=== PATIENT | male | born 1950 | race Caucasian/White ===

== ENCOUNTER 2018-06-27 13:03 | Inpatient (IN) | payer OTHER ==
[~2018-06-27] VITALS: Ht 177.8 cm; Wt 89.9 kg
[~2018-06-27 13:03] MED LIST: APAP/HYDROCODON1 T13 PO; COL100 PO
[2018-06-27 13:19] VITALS: Ht 177.8 cm; Wt 89.9 kg
[2018-06-27 18:51] LABS: BASOPHIL % 0.4 % (0-2); PLATELET COUNT 261 x10^3mcL (130-400)
[2018-06-27 19:00] LABS: CALCIUM 8.5 mg/dL (8.5-10.1); CARBON DIOXIDE 30.5 mmol/L (21-32); CREATININE SERUM 1.3 mg/dL (0.7-1.3); POTASSIUM SERUM 3.8 mmol/L (3.5-5.1)
[2018-06-27 19:04] LABS: ALBUMIN 3.4 g/dL (3.4-5.0); BILIRUBIN TOTAL 0.88 mg/dL (0.20-1.00)
[2018-06-27 19:07] LABS: RED CELL DISTRIBUTION WIDTH 15.9 % (11.5-14.5)
[2018-06-27 19:48] LABS: MAGNESIUM 2.2 mg/dL (1.8-2.4); PHOSPHOROUS 3.8 mg/dL (2.5-4.9)
[2018-06-27 19:50] LABS: CHOLESTEROL/HDL RATIO 2.5
[2018-06-27 19:55] LABS: T3 TOTAL 0.99 ng/mL
[2018-06-27 19:58] LABS: FREE T4 1.29 ng/dL (0.76-1.46); FREE THYROXINE INDEX 2.5 ug/dL (1.4-4.5)
[2018-06-27 20:45] VITALS: BP 176/109
[2018-06-27] MEDS ORDERED: HCTZ/LISINOPRIL1 TA1 PO (21:42)
[2018-06-27] MEDS ORDERED: CIPRO500 MG PO (21:43)
[2018-06-27] MEDS ORDERED: MELOXICAM15 M1 PO (21:43)
[2018-06-28 01:39] LABS: microscopic required? NO
[2018-06-28 01:45] LABS: urine erythrocyte NEGATIVE (NEGATIVE)
[2018-06-28 01:58] LABS: AMPHETAMINE QUAL UR NONE DETECTED (See below)
[2018-06-28 05:47] VITALS: BP 136/97
[2018-06-28 08:30] VITALS: BP 111/79
[2018-06-28 12:38] VITALS: BP 111/62
[2018-06-28 16:37] VITALS: BP 137/78
[2018-06-28 20:39] VITALS: BP 125/68
[2018-06-29 05:25] VITALS: BP 145/77
[2018-06-29 06:24] LABS: PLATELET COUNT 286 x10^3mcL (130-400)
[2018-06-29 06:40] LABS: CALCIUM 8.5 mg/dL (8.5-10.1); CHLORIDE SERUM 103 mmol/L (98-107); CREATININE SERUM 1.2 mg/dL (0.7-1.3); GFR1 > 60 mL/min; GLUCOSE SERUM 157 mg/dL (74-106); MAGNESIUM 2.2 mg/dL (1.8-2.4); PHOSPHOROUS 3.5 mg/dL (2.5-4.9); POTASSIUM SERUM 3.9 mmol/L (3.5-5.1); SODIUM SERUM 139 mmol/L (136-145)
[2018-06-29 07:18] LABS: BASOPHIL % 0 % (0-2); RED CELL DISTRIBUTION WIDTH 15.6 % (11.5-14.5)
[2018-06-29 09:14] VITALS: BP 124/76
[2018-06-29 13:32] VITALS: BP 126/76
[2018-06-29 17:28] VITALS: BP 122/74
[2018-06-29 20:52] VITALS: BP 116/80
[2018-06-30 05:50] VITALS: BP 136/85
[2018-06-30 06:48] LABS: PLATELET COUNT 296 x10^3mcL (130-400)
[2018-06-30 06:55] LABS: BASOPHIL % 0 % (0-2); RED CELL DISTRIBUTION WIDTH 16.5 % (11.5-14.5)
[2018-06-30 07:09] LABS: CALCIUM 8.3 mg/dL (8.5-10.1); CHLORIDE SERUM 103 mmol/L (98-107); CREATININE SERUM 1.1 mg/dL (0.7-1.3); GFR1 > 60 mL/min; GLUCOSE SERUM 134 mg/dL (74-106); MAGNESIUM 2.3 mg/dL (1.8-2.4); PHOSPHOROUS 3.7 mg/dL (2.5-4.9); POTASSIUM SERUM 4.1 mmol/L (3.5-5.1); SODIUM SERUM 138 mmol/L (136-145)
[2018-06-30 08:53] VITALS: BP 134/81
[2018-06-30 10:42] VITALS: BP 134/81
[2018-06-30] MEDS ORDERED: LEVAQUIN750 MG PO (10:47)
[2018-06-30] MEDS ORDERED: MEDROL4 MG PO (10:49)
== END 2018-06-30 13:17 | disposition home or self-care (01) | DRG 193 ==
LOC: ED 13:03 → MU 19:18 → DU 19:18 → MU 20:20 → DU 21:00
PROVIDERS: Emergency Medicine; Internal Medicine
DX: J18.9 Pneumonia, unspecified organism (principal); J96.01 Acute respiratory failure with hypoxia; J44.1 Chronic obstructive pulmonary disease with (acute) exacerbation; I50.42 Chronic combined systolic (congestive) and diastolic (congestive) heart failure; I10 Essential (primary) hypertension; I25.2 Old myocardial infarction; Z68.30 Body mass index [BMI] 30.0-30.9, adult; Z86.73 Personal history of transient ischemic attack (TIA), and cerebral infarction without residual deficits; F17.210 Nicotine dependence, cigarettes, uncomplicated
CPT/HCPCS: 36600; 82962; 83880; 84439; 92610-GN; 94150; 97110-GP; 97530-GP; 99406; J1940; J1956; J2920; J2930; J7030; J7040; J7613; J7620; J7644

== ENCOUNTER 2018-09-22 15:52 | Emergency (ER) | payer OTHER ==
[~2018-09-22] VITALS: Ht 177.8 cm; Wt 113.4 kg
[~2018-09-22 15:52] MED LIST changes: +CIPRO500 MG PO; +HCTZ/LISINOPRIL1 TA1 PO; +LEVAQUIN750 MG PO; +MEDROL4 MG PO; +MELOXICAM15 M1 PO
[2018-09-22 16:17] VITALS: Ht 177.8 cm; Wt 113.4 kg
[2018-09-22 16:51] LABS: CALCIUM 9.1 mg/dL (8.5-10.1); CARBON DIOXIDE 27.9 mmol/L (21-32); CHLORIDE SERUM 106 mmol/L (98-107); CREATININE SERUM 1.2 mg/dL (0.7-1.3); GFR1 > 60 mL/min; GLUCOSE SERUM 122 mg/dL (74-106); POTASSIUM SERUM 3.7 mmol/L (3.5-5.1); SODIUM SERUM 143 mmol/L (136-145)
[2018-09-22 16:56] LABS: ALBUMIN 3.6 g/dL (3.4-5.0); ALKALINE PHOSPHATASE 76 U/L (46-116); ALT/SGPT 27 U/L (16-63); AST/SGOT 14 U/L (15-37); BILIRUBIN TOTAL 0.6 mg/dL (0.20-1.00); TOTAL PROTEIN, SERUM 7.7 g/dL (6.4-8.2)
[2018-09-22 17:08] LABS: BASOPHIL % 0.7 % (0-2); PLATELET COUNT 276 x10^3mcL (130-400)
[2018-09-22 17:19] LABS: RED CELL DISTRIBUTION WIDTH 15.4 % (11.5-14.5)
[2018-09-22 19:40] VITALS: BP 142/99
== END 2018-09-22 20:19 | disposition home or self-care (01) ==
LOC: ED 15:52
PROVIDERS: Emergency Medicine
DX: E86.0 Dehydration (principal); M79.605 Pain in left leg
CPT/HCPCS: 83880; 87804; J1885; J7030; Q0092

== ENCOUNTER 2018-10-03 22:32 | Inpatient (IN) | payer OTHER ==
[~2018-10-03] VITALS: Ht 177.8 cm; Wt 90.0 kg
--- NOTE | 2018-10-03 23:04 | NUR ---
PATIENT WAS MICHAEL IN BY EMS WITH REPORT OF PRODUCTIVE COUGH X 3 DAYS AND SHOTRNESS OF BREATH. EMS REPORTS ROOM AIR SATURATION 90. ATIENT IS OS 2 LITERS OF OXYGEN VIA N/C. COURSE BREATH SOUND OVER LUNG FIELD
[2018-10-03 23:27] LABS: BASOPHIL % 0.6 % (0-2); PLATELET COUNT 306 x10^3mcL (130-400)
[2018-10-03 23:28] LABS: RED CELL DISTRIBUTION WIDTH 15.1 % (11.5-14.5)
[2018-10-03 23:33] LABS: CALCIUM 8.5 mg/dL (8.5-10.1); CARBON DIOXIDE 31.8 mmol/L (21-32); CHLORIDE SERUM 103 mmol/L (98-107); CREATININE SERUM 1.2 mg/dL (0.7-1.3); GFR1 > 60 mL/min; GLUCOSE SERUM 138 mg/dL (74-106); POTASSIUM SERUM 3.3 mmol/L (3.5-5.1); SODIUM SERUM 141 mmol/L (136-145)
[2018-10-03 23:45] LABS: ALKALINE PHOSPHATASE 71 U/L (46-116); ALT/SGPT 24 U/L (16-63); AST/SGOT 11 U/L (15-37); BILIRUBIN TOTAL 0.4 mg/dL (0.20-1.00); TOTAL PROTEIN, SERUM 7.1 g/dL (6.4-8.2)
[2018-10-03 23:59] LABS: CHOLESTEROL 68 mg/dL (<200); HDL CHOLESTEROL 25 mg/dL (40-60)
[2018-10-04 01:48] LABS: MAGNESIUM 2.2 mg/dL (1.8-2.4); PHOSPHOROUS 2.9 mg/dL (2.5-4.9)
--- NOTE | 2018-10-04 01:53 | NUR ---
PT MEDICATED PER MD ORDERS. PT VERBALIZED UNDERSTANDING OF MEDICATION. SEE EMAR
--- NOTE | 2018-10-04 02:30 | NUR ---
RECEIVED PT FROM ED NURSES ON [facility]. TELE #40 SHOWING NSR, DENIES CP. COARSE RHONCHI NOTED BILATERALLY, SOB WITH EXERTION, PRODUCTIVE COUGH WITH MODERATE AMOUNT OF WHITE SPUTUM NOTED. PT PLACED ON 4L OXYGEN VIA NC, HOB ELEVATED. ABD DISTENDED/ROUND, BOWEL SOUNDS ACTIVE X4 QUADS, DENIES N/V. PULSES PALPABLE, NO EDEMA NOTED. PT WHEELCHAIR BOUND. IV SITES NOTED TO L HAND AND RFA, CDI WITH NO S/S REDNESS OR SWELLING. PT SENT UP WITH AZITHROMYCIN. ORIENTED TO SURROUNDINGS. CALL LIGHT WITHIN REACH. WILL CONTINUE TO MONITOR.
--- NOTE | 2018-10-04 02:30 | NUR ---
REPORT WAS GIVEN T MARIA ELENA. PATIENT TRANSPORTED TO ROOM 253B AFTER COMPLETING BREATHING TREATMENT.
[2018-10-04 03:17] VITALS: BP 148/93
--- NOTE | 2018-10-04 03:50 | NUR ---
PAGE-GATED DR. LUNDBERG REGARDING K+ 3.3.
[2018-10-04 05:24] VITALS: BP 146/83
--- NOTE | 2018-10-04 06:17 | NUR ---
RT CALLED PER DR. LUNDBERG REQUEST.
--- NOTE | 2018-10-04 06:19 | NUR ---
PT RESTING IN BED, EASILY AROUSABLE, 4L OXYGEN NC IN PLACE. SOB AND PRODUCTIVE COUGH NOTED. DENIES PAIN. NO CHANGE IN ASSESSMENT. ALL NEEDS MET AND ATTENDED TO. ENCOURAGED PT TO SPIT OUT SPUTUM INSTEAD OF SWALLOWING, PT VERBALIZED UNDERSTANDING. IV SITES REMAIN CDI, NO S/S REDNESS OR SWELLING. CALL LIGHT WITHIN REACH. WILL CONTINUE T OMONITOR.
--- NOTE | 2018-10-04 07:01 | NUR ---
PT REPORTS FEELING NAUSEOUS AND SPITTING UP, MEDICATED PER EMAR WITH ZOFRAN.
--- NOTE | 2018-10-04 08:03 | NUR ---
RECEIVED AWAKE AND ALERT, ON O2 4L N/C SATS 94%. NO ACUTE RESP. DISTRESS NOTED. PT NOTED WITH WET/PRODUCTIVE COUGH. NO SOB NOTED. NO C/O PAIN OR DISCOMFORT AT THIS TIME. FAMILY AT BEDSIDE. CALL LIGHT WITHIN REACH. WILL CONTINUE W/PLAN OF CARE.
[2018-10-04 09:06] LABS: microscopic required? NO
[2018-10-04 09:09] LABS: UA SPECIFIC GRAVITY 1.025 (1.005-1.035); urine erythrocyte NEGATIVE (NEGATIVE)
[2018-10-04 09:38] VITALS: BP 115/78
[2018-10-04 12:27] VITALS: BP 118/77
[2018-10-04 17:28] VITALS: BP 114/63
--- NOTE | 2018-10-04 18:56 | NUR ---
REMAINS IN NO ACUTE DISTRESS, NO C/O PAIN AT THIS TIME. IVF INFUSING WELL AND SITE CLEAR. CALL LIGHT WITHIN REACH. WILL BE ENDODRSED TO INCOMING SHIFT.
--- NOTE | 2018-10-04 19:41 | NUR ---
RECEIVED PT FROM DAY SHIFT RN. RAY. TELE #40 SHOWING NSR, HR 73. DENIES CP. BREATHING E/U, SOB WITH MINIMAL EXERTION, ON 4L OXYGEN WITH HUMIDIFIER. RHONCHI NOTED BILATERALLY. PT OCCASIONALLY HAS EPISODES OF WET PRODUCTIVE COUGHING AND GASPING FOR AIR. ABD FIRM/ROUND, BOWEL SOUNDS ACTIVE X4 QUADS, NO N/V. DENIES PAIN. PULSES PALPABLE. NO EDEMA NOTED. CALL LIGHT WITHIN REACH. IVF INFUSING WELL, IV SITE TO L HAND CDI WITH NO REDNESS OR SWELLING. WILL CONTINUE TO MONITOR.
[2018-10-04 20:33] VITALS: BP 111/70
--- NOTE | 2018-10-05 00:04 | NUR ---
PT RESTING IN BED WITH EYES CLOSED. BREATHING E/U. OCCASIONALLY HAS WET PRODUCTIVE COUGH. NO SIGNS OF PAIN. CALL LIGHT WITHIN REACH. WILL CONTINUE TO MONITOR.
[2018-10-05 05:23] VITALS: BP 120/79
--- NOTE | 2018-10-05 05:50 | NUR ---
PT HAD RESTFUL NIGHT. DENIES PAIN. WAS ABLE TO INDEPENDENTLY SUCTION MOUTH, LITTLE OUTPUT NOTED. BREATHING E/U ON NC WITH HUMIDIFIER. NO CHANGE IN ASSESSMENT. ALL NEEDS MET AND ATTENDED TO. IV REMAINS CDI, IVF INFUSING WELL. CALL LIGHT WITHIN REACH. WILL CONTINUE TO MONITOR.
--- NOTE | 2018-10-05 08:00 | NUR ---
RECEIVED AWAKE AND ALERT. WITH GABBLED SPEECH AND SLOW TO RESPOND BUT ABLE TO MAKE NEEDS KNOWN. ON O2 4L N/V WITH HUMIDIFY SATS 92-93%. NO ACUTE RESP. DISTRESS NOTED. PT WITH WET PRODUCTIVE COUGH. LUNGS SOUND RHONCHI KINGSLEY.NO SOB NOTED. VS WNL. IVF INFUSING WELL AND SITE WITH NO REDNESS OR SWELLING. CALL LIGHT WITHIN REACH.WILL CONTINUE W/PLAN OF CARE.
[2018-10-05 08:26] VITALS: BP 129/79
--- NOTE | 2018-10-05 12:27 | NUR ---
RESTING IN BED. NO ACUTE DISTRESS. DENIES DISCOMFORT.
[2018-10-05 12:52] VITALS: BP 119/73
--- NOTE | 2018-10-05 18:37 | NUR ---
REMAINS IN NO ACUTE DISTRESS. AWAKE AND ALERT. NO C/O PAIN OR DISCOMFORT AT THIS TIME. CALL LIGHT WITHIN REACH. WILL BE ENDORSED TO INCOMING SHIFT.
[2018-10-05 18:41] VITALS: BP 134/71
--- NOTE | 2018-10-05 19:21 | NUR ---
RECEIVED PT FROM DAY SHIFT RN. RAY. TELE #40 SHOWING NSR. DENIES CP. PT REPORTS "BREATHING BETTER" AFTER BREATHING TX AND SUCTIONING. PT REMAINS VERY CONGESTED, 4L OXYGEN WITH HUMIDIFIER IN USE, COARSE CRACKLES AND RHONCHI BILATERALLY. PT COUGH REMAINS UNPRODUCTIVE. PT REPORTS SOME JAWLINE DISCOMFORT. ABD FIRM/ROUND, BOWEL SOUNDS ACTIVE X4 QUADS, NO N/V. DENIES PAIN. PULSES PALPABLE. NO EDEMA NOTED. CALL LIGHT WITHIN REACH. IVF INFUSING WELL, IV SITE TO L HAND CDI WITH NO REDNESS OR SWELLING. WILL CONTINUE TO MONITOR.
--- NOTE | 2018-10-05 21:01 | NUR ---
PATIENT WAS NT SUCTIONED AND ORALLY SUCTIONED WITH MINIMAL IMPROVEMENT. PT HAS COPIOUS AMOUNTS OF SECRETIONS. WITH HIS HISTORY OF CVA AND NON-PRODUCTIVE COUGH, PATIENT HAS A HARD TIME SPEAKING DUE TO THE PHLEGHM. PATIENT WOULD POSS BENEFIT FROM A BRONCH WASH. RN INFORMED.
[2018-10-05 21:05] VITALS: BP 126/83
--- NOTE | 2018-10-05 21:44 | NUR ---
SPOKE TO DR. MENDEZ REGARDING RT RECOMMENDATION FOR BRONCHOSCOPY. NO NEW ORDERS.
--- NOTE | 2018-10-06 01:03 | NUR ---
PT RESTING IN BED. FIXED PT LEADS AND GOWN. EASILY AROUSABLE TO SOUND. VERY WET PRODUCTIVE COUGH NOTED. DENIES PAIN. WILL CONTINUE TO MONITOR.
[2018-10-06 05:13] VITALS: BP 142/85
--- NOTE | 2018-10-06 06:03 | NUR ---
PT HAD RESTFUL NIGHT. DENIES PAIN. NO S/S ACUTE DISTRESS. NO CHANGE IN ASSESSMENT. ALL NEEDS MET AND ATTENDED TO. SAFETY MEASURE IN PLACE. CALL LIGHT WITHIN REACH. WILL CONTINUE TO MONITOR.
--- NOTE | 2018-10-06 07:05 | NUR ---
REPORT RCD FROM SAUL ARREDONDO. PATIENT REPORTS HE IS WET WITH URINE, SHEETS/GOWN WET, WILL BRING DRY LINENS, INFORMED INFRASTRUCTURE ANALYST OF NEED, CONCHA. NS 125 ML/HR TO LEFT HAND WITHOUT COMPLICATIONS. PATIENT ON 4L NC WITH VERY NOISY BREATHING, WET COUGH. ASSISTED PATIENT TO SUCTION SECRETIONS. PATIENT TO USE CALL LIGHT TO COMMUNICATE NEEDS. BED LOW, CALL LIGHT WITHIN REACH. WILL MONITOR.
[2018-10-06 07:34] LABS: CALCIUM 8.2 mg/dL (8.5-10.1); CARBON DIOXIDE 35.2 mmol/L (21-32); CHLORIDE SERUM 102 mmol/L (98-107); GFR1 > 60 mL/min; GLUCOSE SERUM 131 mg/dL (74-106); MAGNESIUM 2.3 mg/dL (1.8-2.4); POTASSIUM SERUM 4.6 mmol/L (3.5-5.1); SODIUM SERUM 139 mmol/L (136-145)
--- NOTE | 2018-10-06 07:40 | NUR ---
WITH ASSISTANCE OF ESTRELLITA NAQVI, CHANGED PATIENT'S LINENS AND GOWN PATIENT WAS SOAKED WITH URINE. PATIENT REPOSITIONED FOR COMFORT. SHIFT ASSESSMENT PERFORMED AND DOCUMENTED. PATIENT HAS VERY WET COUGH AND IS ENCOURAGED TO COUGH AND CLEAR SECRETIONS AND USE SUCTIONING WHICH IS WITHIN REACH. BED ALARM SET. ASSISTED WITH SETTING UP BREAKFAST. NO OTHER NEEDS AT THIS TIME. CALL LIGHT WITHIN REACH. WILL MONITOR.
[2018-10-06 07:41] LABS: PLATELET COUNT 288 x10^3mcL (130-400)
[2018-10-06 07:47] LABS: BASOPHIL % 0 % (0-2); RED CELL DISTRIBUTION WIDTH 15.1 % (11.5-14.5)
[2018-10-06 09:00] VITALS: BP 151/91
--- NOTE | 2018-10-06 09:25 | NUR ---
ASSISTED PATIENT TO BEDPAN AND WITH URINAL. DRY PAD PLACED UNDER PATIENT. NO OTHER NEEDS. WILL MONITOR.
--- NOTE | 2018-10-06 13:52 | NUR ---
D ORDER TO OBTAIN URINE CULTURE FROM DR. LAZCANO. SPOKE WITH DOCTOR AND DISCUSSED FACT THAT PATIENT'S UA WAS NEGATIVE. PER DR. LAZCANO, NO NEED FOR URINE CULTURE.
--- NOTE | 2018-10-06 15:42 | NUR ---
RESPIRATORY THERAPIST, AGAPITO, IN ROOM. DISCUSSED NEED FOR SPUTUM CULTURE. AGAPITO SUCTIONED PATIENT AND OBTAINED SAMPLE PATIENT UNABLE TO EXPECTORATE SPUTUM. SENT TO LAB.
[2018-10-06 17:40] VITALS: BP 164/95
--- NOTE | 2018-10-06 19:21 | NUR ---
REPORT GIVEN TO SAUL GREGORIO. PATIENT ON 4L NC HUMIDIFIED WITH WET COUGH, GARBLED SPEECH, BUT ABLE TO COMMUNICATE NEEDS. PATIENT ON RT PROTOCOL WITH CPT, BIPAP AT NIGHT, AND PRN SUCTIONING BY RT. PATIENT IN NO ACUTE DISTRESS AT THIS TIME. BED LOW, CALL LIGHT WITHIN REACH. CARE ENDORSED.
--- NOTE | 2018-10-06 20:34 | NUR ---
PT. AWAKE, ALERT, ORIENTED X4. DENIES HEADACHE OR DIZZINESS. SPEECH GARBLED. PT. W/ HX OF STROKE. RESIDUAL WEAKNESS NOTED TO LT. SIDE. BREATH SOUNDS W/ COARSE CRACKLES, RHONCHI TO BUL. BLL DIMINISHED. PT. ON 4L/NC. RESP. EVEN, UNLABORED. NO SOB NOTED AT THIS TIME. O2 SAT. 96%. NO EDEMA NOTED TO EXTREMITIES. PEDAL PULSES STRONG BLE. IVF INFUSING WELL, SITE WNL. PT. ENCOURAGED TO USE IS, ALSO ENCOURAGED TO SUCTION SELF W/ YANKER WHEN HE FEELS THE SECRETIONS BUILDING UP. PT. VERBALIZED UNDERSATNDING. CALL LIGHT WITHIN REACH.
[2018-10-06 21:04] VITALS: BP 151/87
--- NOTE | 2018-10-06 22:37 | NUR ---
ATTEMPTED PT PLACE PT ON BIPAP. UNSUCCESSFUL. PT STATED HE FELT IF HE WERE SUFFOCATING. BIPAP REMOVED. RESUMED PT ON 4L N/C WITH HUMIDIFIER.
--- NOTE | 2018-10-06 22:49 | NUR ---
PT. RECEIVED DEEP NASAL SUCTION FROM RT. PT. WAS ALSO ABL TO USE YANKER AND REMOVED COPIOUS BROWN, YELLOWISH MUCUS THROUGH HIS NARES. BREATHING TREATMENT ALSO DONE. RT. ATTEMPTED TO PLACE PT. ON BIPAP MACHINE, BUT PT.COULD NOT TOLERATE DEVICE. PT. STATED THAT HE FELT THOUGH HE COULD NOT BREATHE, TAHT HE WAS 'SUFFICATING'. DR. MARR WAS PAGED, MADE AWARE OF SITUATION. ALSO MADE AWARE OF CURRENT IVF RATE OF 125. AWAITING DR. MARR'S VISIT TO ASSESS PT. AT THIS TIME.
--- NOTE | 2018-10-06 23:35 | NUR ---
DR. MARR MADE ROUNDS AND SAW PT. RECEIVED ORDERS TO DECREASE IVF RATE TO 60CC/HR. ALSO CXR WAS ORDERED AND COMPLETED.
--- NOTE | 2018-10-07 02:43 | NUR ---
NO RESP. DISTRESS NOTED. PT. REMAINS ON 4L/NC. RT. TREATMENT PER PROTOCOL. PT. RECEIVED BED BATH AND MADE COMFORTABLE. CALL LIGHT WITHIN REACH. BED LOW LAYING W/ ALARM ON.
[2018-10-07 06:12] LABS: PLATELET COUNT 279 x10^3mcL (130-400)
[2018-10-07 06:16] VITALS: BP 156/93
--- NOTE | 2018-10-07 06:21 | NUR ---
PT. DOZING AT THIS TIME. REMAINS ON 4L/NC. SUCTIONED SELF NEEDED THROUGHOUT NIGHT. ALSO SUCTIONED PRN BY RT ANS MYSELF. NO RES[P. DISTRESS. IVF INFUSING ORDERED, NO C/O PAIN THROUGHOUT NIGHT. WILL ENDORSE PT. CARE TO INCOMING NURSE.
[2018-10-07 06:43] LABS: CALCIUM 8.5 mg/dL (8.5-10.1); CARBON DIOXIDE 32.1 mmol/L (21-32); CHLORIDE SERUM 98 mmol/L (98-107); GFR1 > 60 mL/min; GLUCOSE SERUM 125 mg/dL (74-106); MAGNESIUM 2.2 mg/dL (1.8-2.4); PHOSPHOROUS 3.4 mg/dL (2.5-4.9); POTASSIUM SERUM 3.8 mmol/L (3.5-5.1); SODIUM SERUM 138 mmol/L (136-145)
[2018-10-07 07:06] LABS: BASOPHIL % 0 % (0-2); RED CELL DISTRIBUTION WIDTH 15.2 % (11.5-14.5)
--- NOTE | 2018-10-07 07:45 | NUR ---
RECEIVED PT IN BED. ASSESSED AND DOCUMENTED. DENIES PAIN THIS TIME. PT HAS MILD SOB ALL THE TIME, MORE ON EXERTION AND WHEN PT TRY TO SPEAK. RT AWARE AND PT GOING TO GET BREATHING TX. SAFTEY PRECAUTIONS ARE IN PLACE. WILL MONITOR.
[2018-10-07 08:57] VITALS: BP 171/103
--- NOTE | 2018-10-07 10:30 | NUR ---
RT TRIED TO DEEP SUCTION THE PT AND GET SOME SPUTUM SAMPLE BUT BLOOD COMING WHEN SHE SUCTIONED AND PT REFUSED TO SUCTION MORE SHE STOPPED, BEFORE DEEP SUCTION PT'S SECRETIONS WAS CLEAR. AWARE. PT IS STABLE. INFORMED ABOUT PT BP 171/103 WITH 105. PT RECEIVED AM BP MED. NO NEW ORDER RECEIVED THIS TIME.
--- NOTE | 2018-10-07 13:00 | NUR ---
PT BP 163/107 WITH MAP 120, INFORMED . NO NEW ORDER RECIEVED. PT ASYMPTAMATIC. PT STILL HAS SOB ON EXERTION.
[2018-10-07 13:05] VITALS: BP 163/107
[2018-10-07 13:10] VITALS: Ht 177.8 cm; Wt 90.0 kg
[2018-10-07 16:27] VITALS: BP 155/103
--- NOTE | 2018-10-07 19:10 | NUR ---
PT RSTING IN BED COMFORTABLY, SLEEPING, BREATHING THROUGH MOUTH AND MAKING NOISE. STABLE. GAVE REPORT TO SCIENTIFIC LABORATORY SUPERVISOR NURSE.
--- NOTE | 2018-10-07 20:25 | NUR ---
PT. AWAKE, ALERT, GENERALIZED WEAKNESS NOTED. HX OF CVA ALSO W/ RESIDUAL LT. SIDED WEAKNESS. ABLE TO FOLLOW MOST COMMANDS. SPEECH GARBLED AND DIFFICULT TO COMPREHEND. PT. ON 4L/NC. RESP. EVEN, UNLABORED. BREATH SOUNDS W/ COARSE RHONCHI AND CRACKLES. NON-PRODUCTIVE COUGH NOTED. PT. UNABLE TO COUGH UP PHLEGM. PHLEGM THICK IN PT.'S THROAT. SELF SUCTIONING W/ YANKER NEEDED, BLOOD TINGED AT TIMES NOTED. NSR ON MONITOR. TRACE EDEMA TO BLE. PEDAL PULSES STRONG. IVF NS AT 60CC/HR. ABD. SOFT AND ROUND, BOWEL SOUNDS ACTIVE. CALL LIGHT WITHIN REACH. BED ALARM ON. FREQUENT ROUNDS PLANNED.
[2018-10-07 21:54] VITALS: BP 137/89
--- NOTE | 2018-10-08 | NUR ---
LATE ENTRY: BREATHING TREATMENT AND SOME SUCTIONING DONE BY RT. MUCUS REMAINS THICK. PT. W/ COARSE CRACKLES AND RHONCHI. ON 4L/NC. CONTINUES TO HAVE STRIDOR LIKE SOUNDS/GRUNTING IN HIS THROAT AREA. PT. ABLE TO SWALLOW WATER W/OUT DIFFICULTY. O2 SAT. 95%. WILL CONTINUE TO MONITOR. CALL LIGHT WITHIN REACH.
[2018-10-08 05:32] VITALS: BP 146/88
--- NOTE | 2018-10-08 05:57 | NUR ---
PT. GIVEN AM CARE AND HELPED W/ REPOSITIONING. APPEARS COMFORTABLE, IN UPRIGHT POSITION. REMAINS ON 4L/NC. UNABLE TO OBTAIN SPUTUM CULTURE THUS FAR. PT. HAS SOME BLOOD TINGE SPECIMEN. NO PROBLEMS W/ SOB THROUGHOUT NIGHT. REMAINS W/ COARSE RHONCHI AND CRACKLES. IVF INFUSING WELL. WILL ENDORSE PT. CARE TO INCOMING NURSE.
[2018-10-08 06:28] LABS: CALCIUM 8.8 mg/dL (8.5-10.1); CARBON DIOXIDE 34.3 mmol/L (21-32); CHLORIDE SERUM 98 mmol/L (98-107); GFR1 > 60 mL/min; GLUCOSE SERUM 135 mg/dL (74-106); MAGNESIUM 2.5 mg/dL (1.8-2.4); PHOSPHOROUS 4.5 mg/dL (2.5-4.9); POTASSIUM SERUM 3.8 mmol/L (3.5-5.1); SODIUM SERUM 138 mmol/L (136-145)
[2018-10-08 06:35] LABS: PLATELET COUNT 287 x10^3mcL (130-400)
[2018-10-08 06:40] LABS: BASOPHIL % 0 % (0-2)
--- NOTE | 2018-10-08 07:35 | NUR ---
SLEEPING BUT AROUSABLE. NO ACUTE RESP. DISTRESS NOTED. ON O2 4L N/C WITH HUMIDIFY, SATS 95%. NO C/O PAIN OR DISCOMFORT AT THIS TIME. VS WNL. IVF INFUSING WELL AND SITE CLEAR. CALL LIGHT WITHIN REACH. WILL CONTINUE WITH PLAN OF CARE.
[2018-10-08 10:27] VITALS: BP 152/91
--- NOTE | 2018-10-08 12:46 | NUR ---
FAMILY AT BEDSIDE. NO C/O PAIN AT THIS TIME.
[2018-10-08 13:33] VITALS: BP 145/97
--- NOTE | 2018-10-08 15:49 | NUR ---
Initial Nutrition Assessment Dx: COPD PMHx: HTN, DM, Prior CVA, [place], Nicotine dependence PSHx: Appendectomy Labs: (10/08) Na 138, K 3.8, BG 135H, BUN 24H, Cr 1.0, A1c 6.2, WBC 10.7, H/H 17.6/53H BG readings (10/06-10/08): 87-160 mg/dL; all <180 mg/dL. Meds: D50%, Humulin, Hydrochlorothiazide, Mucinex, NSIV, Solu-Medrol, Tylenol, Zestril, Zofran, Zosyn Diet: CCHO PO Intake: (10/08) B: 80% (10/07) B: 80% L: 60% D: 90% (10/06) B: 100% D/L: 50%. Average PO intake 73% x 3 days. Ht: 70" (178 cm) Wt: 198# (89.8 kg) BMI: 28.4 (Overweight) IBW: 166# %IBW: 119% UBW: Pt. does not recall Age: 68 y/o male Food Allergies: NKFA Skin: Intact Abiel: 18 Edema: None GI: Last BM x 1 (10/06) Per H&P, pt. admitted with SOB x 3 days associated with productive coughing and phlegm production. Continues to have wheezing, rales, and productive coughing at this time per provider progress notes. Antibiotic treatment with Zosyn and hospitalization will continue per bed huddle. Pt. seen laying in bed during visit. Reports that he has difficulty breathing and was wheezing/sputtering throughout the nutrition interview; information from patient is limited as a result. States that he uses "side muscles" when he has difficulty breathing, but has not negatively affected his appetite or PO intake. No reports of GI distress noted. Discussed nutrition recommendations with BENEFITS COUNSELOR Ramin, who was agreeable to implementing interventions. Problem with: No c/o N/V/D/C Problems with: Chewing: N Swallowing: N Current appetite: Fair to good Recent wt change: None %wt change: N/A Vitamin/Supplement use: None Special diet at home: Regular Physical activity: None, unable to d/t difficulty breathing and fatigue upon exertion Education: Notified pt. of CCHO diet and associated restrictions. Emphasized the importance of CCHO counting for optimal BG/DM management. Provided pt. with NC CCHO diet handout. Pt. verbalized understanding and appreciation for diet education. Estimated Nutritional Needs Based on actual body weight 89.8 kg: Energy: 1352-1542 kcal/d (20-23 kcal/kg-Increased for COPD and SOB) Protein: 90-99 g/d (1.0-1.1 g/kg)-maintenance and preservation of lean body mass Fluid: 3816-9947 ml/d (1 ml/kcal-fluid balance) or per doctor Nutrition Diagnosis Increased nutrient needs r/t altered and increased metabolic demands AEB pt. reports of requiring to utilize accessory breathing muscles during episodes of SOB/without RT treatment. Intervention/RD recommendations 1. Continue CCHO diet as ordered and as tolerated. 2. Recommendation to add Glucerna BID for increased nutrient needs for COPD. Regimen adds 440 kcal and 20 g protein. Monitor/Evaluate Goal: PO intake at least 75% of estimated needs Monitor: PO intake, Labs, GI function, diet tolerance F/U in 3-5 days as moderate risk (10/11-10/13)
--- NOTE | 2018-10-08 15:50 | NUR ---
Intervention/RD recommendations 1. [facility] as ordered and as tolerated. 2. Recommendation to add Glucerna BID for increased nutrient needs for COPD. Regimen adds 440 kcal and 20 g protein.
[2018-10-08 17:23] VITALS: BP 144/75
--- NOTE | 2018-10-08 18:46 | NUR ---
REMAINS IN NO ACUTE DISTRESS. AWAKE AND ALERT. NO CHANGES IN VS. IVF INFUSING AND NEW LINE PATENT. PT DENIES PAIN OR DISCOMFORT AT THIS TIME. CALL LIGHT WITHIN REACH. WILL BE ENDORSED TO INCOMING SHIFT.
--- NOTE | 2018-10-08 19:23 | NUR ---
RECEIVED PT FROM DAY SHIFT RN. RAY. TELE #40 SHOWING NSR, DENIES CP. BREATHING E/U, ON 4L OXYGEN WITH HUMIDIFIER, SOB WITH EXERTION. RHONCHI NOTED BILATERALLY, DIMINISHED BASES. ABD SOFT/ROUND, BOWEL SOUNDS ACTIVE X4 QUADS, NO N/V. PULSES PALPABLE, +2 PITTING EDEMA NOTED TO L HAND. CALL LIGHT WITHIN REACH. WILL CONTINUE TO MONITOR.
--- NOTE | 2018-10-08 21:40 | NUR ---
PT REFUSING RT BREATHING TX.
[2018-10-08 22:02] VITALS: BP 148/86
--- NOTE | 2018-10-08 22:16 | NUR ---
PT REFUSING TO BE PLACED BACK ON TELE, SAYS "LEAVE ME ALONE". WILL CONTINUE TO MONITOR.
--- NOTE | 2018-10-08 23:24 | NUR ---
PT PLACED BACK ON TELE, MORE COOPERATIVE WITH CARE. RESTING WITH EYES CLOSED. WET NON-PRODUCTIVE COUGH NOTED. WILL CONTINUE TO MONITOR.
--- NOTE | 2018-10-09 05:50 | NUR ---
PT HAD RESTFUL NIGHT. BREATHING E/U. NO SOB NOTED. PT REPOSITIONED FOR COMFORT. NO SIGNS OF PAIN. NO CHANGE IN ASSESSMENT. ALL NEEDS MET AND ATTENDED TO. CALL LIGHT WITHIN REACH. WILL CONTINUE TO MONITOR.
[2018-10-09 05:56] VITALS: BP 142/94
[2018-10-09 06:07] LABS: PLATELET COUNT 305 x10^3mcL (130-400)
[2018-10-09 06:31] LABS: CALCIUM 8.4 mg/dL (8.5-10.1); CARBON DIOXIDE 32.9 mmol/L (21-32); CHLORIDE SERUM 100 mmol/L (98-107); GFR1 > 60 mL/min; GLUCOSE SERUM 141 mg/dL (74-106); POTASSIUM SERUM 3.9 mmol/L (3.5-5.1); SODIUM SERUM 139 mmol/L (136-145)
[2018-10-09 06:51] LABS: BASOPHIL % 0 % (0-2); RED CELL DISTRIBUTION WIDTH 15.2 % (11.5-14.5)
--- NOTE | 2018-10-09 06:55 | NUR ---
PAGED DR. LUNDBERG REGARDING WBC OF 14.0
--- NOTE | 2018-10-09 07:30 | NUR ---
PT ENDORSE TO ME THIS MORNING. FOUND PT SOCKED IN URINE DOWN TO MATTRESS. BOTH CHARGE NURSES MADE AWARE. HAD STUDENT NURSES CLEAN PATIENT UP AND CHANGED ALL SHEETS. PT A/O X4. L SIDE WEAKNESS NOTED DUE TO HX OF CVA. COOK ISLANDER AND [place] SPK. TAKES PT TIME TO VERBALIZE NEEDS. TELE 40, NSR NOTED, HR 60, DENIES ANY CP OR DISCOMFORT. BREATHING EVEN AND UNLABORED, CONGESTED NOTED, CALLED RT FOR TX, LUNGS= RHONCHI/CRACKLES NOTED. HOB ELEVEALTED .BOWEL SOUNDS ACTIVE IN ALL FOUR QUADS LAST BM WAS THIS AM LARGE. GEN WEAKNESS, LSIDE, WHEEL CHAIR USES AT HOME. IV TO THE RFA 60 ML/HR,PATENT. NO REDNESS OR SWELLING NOTED. WILL CONTINUE PLAN OF CARE. CALL LIGHT IN REACH, BY NURSES STATION.
[2018-10-09 08:12] VITALS: BP 139/100
[2018-10-09 12:13] VITALS: BP 143/91
--- NOTE | 2018-10-09 13:20 | NUR ---
PT SITTING UP IN BED RESTING AND WATCHING TV. TOLERATED 100% OF HIS LUNCH. AT BEDSIDE. CONTINUES ON 4L NC DUE TO SOB/TOLERATING WELL. CALL LIGHT IN REACH/ BED IN LOW POSITION. WILL CONTINUE PLAN OF CARE.
--- NOTE | 2018-10-09 13:32 | NUR ---
CHECKED PATIENT TWICE AND FAMILY WAS IN ROOM FEEDING HIM.
--- NOTE | 2018-10-09 14:00 | NUR ---
LAURITA ACOSTA AT BEDSIDE WITH PT. WANTS PT TO CONTINUE ON 4L NC DUE TO SOB. WILL CONTINUE PLAN OF CARE.
[2018-10-09 16:39] VITALS: BP 126/85
--- NOTE | 2018-10-09 17:54 | NUR ---
EDUCATED PT ON THE IMORTANCE ON USING I.S. 10 WITH IN THE HR. PT AGREED. PT STATED HE WILL USE. CALL LIGHT IN REACH/ BED IN LOW POSITION. WILL CONTINUE PLAN OF CARE.
--- NOTE | 2018-10-09 18:37 | NUR ---
NO ACUTE CHANGES AT THIS TIME. NO ACUTE RESP DISTRESS OR SOB NOTED. REMAINS ON 4L NC. HOB ELEVATED. TOLERATED 100% OF HIS DINNER. IV TO THE RFA INTACT AND PATENT, INFUSING AT 60 ML/HR PER DR. KINGSLEY AND QUENCHING CAR OPERATOR. CALL LIGHT IN REACH. BED IN LOW POSITTION. BED ALARM ON. WILL ENDORSE TO INCOMING RN.
--- NOTE | 2018-10-09 20:00 | NUR ---
RECEIVED PT IN BED, ALERT AND ORIENTED.WITH GARBLED SPEECH, DENIES HEADACHE/DIZZINESS. 02 AT 4L/MIN VIA NC. RESP. EVEN AND UNLABORED. LUNG SOUNDS WITH COARSE RHONCHI/CRACLKES. ON RT PROT. HOB ELEVATED. NO ACUTE DISTRESS NOTED. SR ON THE MONITOR, DENIES CP OR ANY DISCOMFORT AT THIS TIME. IVF , NS AT 60ML/HR, INTACT AND INFUSING VIA RT HAND, SITE CLEAR. ASSISTED WITH HS CARE. CALL LIGHT WITHIN REACH. WILL CONTINUE TO MONITOR.
[2018-10-09 21:49] VITALS: BP 122/88
--- NOTE | 2018-10-10 01:42 | NUR ---
PULLED OUT IV, RESTLESS AT TIMES, NEW IV RESTARTED ON RFA, IVF INFUISNG AT THIS TIME. KEPT COMFORTABLE. EYES CLOSED, APPEARS ASLEEP, EASILY AWAKENED. [address], HOB ELEVATED. NO ACUTE DISTRESS NOTED. WILL CONTINUE TO MONITOR.
[2018-10-10 05:26] VITALS: BP 131/97
--- NOTE | 2018-10-10 06:01 | NUR ---
AFEBRILE AND VITAL SIGNS STABLE. CONGESTED , REFUSED SUCTIONING. [address], NO ACUTE DISTRESS NOTED. DUE MEDS GIVEN ORDERED, PENNIE. WELL. IVF INTACT AND INFUSING WELL, SITE CLEAR. VOIDS, INCONT. AT TIMES. KEPT CLEAN AND DRY. NO BM NOTED. CALL LIGHT WITHIN REACH. WILL CONTINUE TO MONITOR.
[2018-10-10 06:38] LABS: BASOPHIL % 0.1 % (0-2); PLATELET COUNT 289 x10^3mcL (130-400)
[2018-10-10 07:07] LABS: CALCIUM 8.6 mg/dL (8.5-10.1); CREATININE SERUM 1.3 mg/dL (0.7-1.3); MAGNESIUM 2.4 mg/dL (1.8-2.4); PHOSPHOROUS 4.2 mg/dL (2.5-4.9)
--- NOTE | 2018-10-10 07:55 | NUR ---
RECEIVED PT IN BED A/A/OX4 DENIES SNIDER. NOTED WITH LT SIDED WEAKNESS D/T HX CVA. WITH GARBLED SPEECH SLOW TO ANSWER AND DIFFICULT TO UNDERSTAND. RESP EVEN AND UNLABORED WITH O2 AT 3L/MIN VIA NC AND RT PROTOCOL. NOTED WITH WHEEZING BILAT AND A CONGESTED COUGH. DENIES ANY CP/PRESSURE, NSR ON TELE. NOTED WITH TRACE EDEMA TO LT HAND. ABD SOFT, OBESE, NONTENDER WITH ACTIVE BS X4. DENIES ANY N/V AT THIS TIME. VOIDING FREELY. NOTED WITH EXCORIATION TO BILAT BUTTOCKS WITH DRY SCABS. APPLYED Z-GUARD AND ASSIST WITH REPOSITIONING. CALL LIGHT IN REACH NEEDS ATTENDED TO.
[2018-10-10 08:53] VITALS: BP 104/66
--- NOTE | 2018-10-10 11:30 | NUR ---
PT PROVIDED WITH [employer] BY [employer] SALES AND SERVICE REPRESENTATIVE AT THIS TIME. CALL LIGHT IN REACH NEEDS ATTENDED TO.
[2018-10-10 13:56] VITALS: BP 120/81
--- NOTE | 2018-10-10 14:00 | NUR ---
PT RESTING COMFORTABLY DENIES ANY DISCOMFORT CALL LIGHT IN REACH NEEDS ATTENDED TO.
--- NOTE | 2018-10-10 16:25 | NUR ---
PT RESTING COMFORTABLE AT THIS TIME. DENIES ANY DISCOMFORT.
--- NOTE | 2018-10-10 18:15 | NUR ---
PT RESTING AT THIS TIME. DENIES ANY DISCOMFORT. IVF INFUSING. CALL LIGHT IN REACH NEEDS ATTENDED TO.
[2018-10-10 18:30] VITALS: BP 125/72
--- NOTE | 2018-10-10 20:00 | NUR ---
RECEIVED IN BED AAO X4 VERBAL GARBLED SPEECH, NO DISTRESS ON 02 @ 2L/MIN VIA NC, AUDIBLE RHONCHI AND CRACKLES BILAT LUNGS, RT PROT FOR TX, OCC COUGHING NON PRODUCTIVE, TELE #40 SR IN THE MONITOR NO CP OR PRESSURE, IV NS INFUSING @ 60CC/HR IV ACCESS RAC PATENT NON INFIL, SHIFT ASSESSMENT DONE, EDEMA LT HAND KEEP ELEVATED WITH PILLOW, REPOSITIONED TO COMFORT, WILL CONT TO MONITOR AND PROCEED TO CURRENT PLAN OF CARE.
[2018-10-10 22:22] VITALS: BP 112/75
--- NOTE | 2018-10-11 01:03 | NUR ---
CHANGED BED LINENS AND GOWN PT HAS EPISODE OF INCONTINENCE, STATED THAT HE USES URINALS BUT HE DIDNT KNOW THAT HE WET THE WHOLE BED, KEEP DRY AND CLEAN, REPOSITIONED TO COMFORT, CONT TO MONITOR.
[2018-10-11 05:38] VITALS: BP 140/82
--- NOTE | 2018-10-11 07:00 | NUR ---
PT SLEPT WELL CONDITION UNCHANGED, RT PROT FOR TX, SOB ON EXERTION V/S STABLE, SR IN THE MONITOR, VOIDED, CONT TO MONITOR.
[2018-10-11 07:21] LABS: PLATELET COUNT 310 x10^3mcL (130-400)
[2018-10-11 07:46] LABS: BASOPHIL % 0 % (0-2)
--- NOTE | 2018-10-11 07:54 | NUR ---
RECEIVED AWAKE AND ALERT. IN NO ACUTE RESP. DISTRESS. VS WNL. IVF INFUSING WELL AND SITE CLEAR. NO C/O PAIN OR DISCOMFORT AT THIS TIME. SIDE RAILS UP X2 AND CALL LIGHT WITHIN REACH. WILL CONTINUE W/PLAN OF CARE.
[2018-10-11 07:56] LABS: CALCIUM 8.7 mg/dL (8.5-10.1); CARBON DIOXIDE 30.2 mmol/L (21-32); CHLORIDE SERUM 100 mmol/L (98-107); GFR1 > 60 mL/min; GLUCOSE SERUM 123 mg/dL (74-106); POTASSIUM SERUM 4.1 mmol/L (3.5-5.1); SODIUM SERUM 136 mmol/L (136-145)
[2018-10-11 10:03] VITALS: BP 124/81
[2018-10-11 12:52] VITALS: BP 104/78
--- NOTE | 2018-10-11 16:50 | NUR ---
IV TO RAC LEAKING, REMOVED AND NEW SITE STARTED TO LFA, PATENT AND IVF INFUSING WELL
--- NOTE | 2018-10-11 17:23 | NUR ---
PT PLACED ON RA FOR 45 MIN. SAT DROP TO 87% PLACED BACK ON 2L/M SAT INREASED TO 93% AT THIS TIME WITH HUMIDIFIER
[2018-10-11 18:01] VITALS: BP 108/69
--- NOTE | 2018-10-11 18:45 | NUR ---
REMAINS IN NO ACUTE DISTRESS. AWAKE AND ALERT. NO C/O PAIN OR DISCOMFORT AT THIS TIME. IVF INFUSING WELL VIA NEW SITE.. CALL LIGHT WITHIN REACH. WILL BE ENDODRSED TO INCOMING SHIFT.
--- NOTE | 2018-10-11 20:16 | NUR ---
SHIFT REASSESSMENT DONE.PATIENT ALERT ORIENTED X2.GARBLED SPEECH,L SIDED WEAKNESS.O2 AT 2 LITERS.REPORT,JORDANNE BIPAP.GEN WEAKNESS,PHYSICAL THERAPY.NS LEFT HAND NEW IV SITE.TELE 40 SR.HEALING EXCORIATION BUTT.GOOD SKIN PROVIDED.TRACE EDEMA LOWER EXT NOTED.VOIDING.VERYU UNHYGIENIC,COUGH AND SPIT.KLEENEX OFFFERED.CALL LIGHT INREACH.
[2018-10-11 21:36] VITALS: BP 130/71
--- NOTE | 2018-10-11 21:59 | NUR ---
ALL SCHEDULED MEDS GIVEN.ASSIST WITH ADLS.
[2018-10-12 06:18] VITALS: BP 131/71
--- NOTE | 2018-10-12 07:00 | NUR ---
AM CARE GIVEN,TOTAL CARE,PATIENT IS JUST MESSY.IVF INFUSING WELL.WILL ENDORSE TO NEXT SHIFT.
--- NOTE | 2018-10-12 07:45 | NUR ---
AAO X 2.LUNG SOUND WITH FINE CRACKLES/DIM ON THE BASES.ON SR ON THE MONITOR.IVF NS GOING AT 60 ML/HR INFUSING WELL.CALL LIGHT WITHIN REACH INSTRUCTED TO CALL FOR ANY PAIN/DISCOMFORT.WILL CONTINUE TO MONITOR PT.
--- NOTE | 2018-10-12 10:00 | NUR ---
GAVE PT COUGHING GAVE SUCTION.PT PREFERRED TO SUCTION HIMSELF.
[2018-10-12 10:18] VITALS: BP 129/83
--- NOTE | 2018-10-12 12:25 | NUR ---
1. Recommend continue CCHO diet.
--- NOTE | 2018-10-12 12:25 | NUR ---
Follow-up Nutrition Assessment Dx: COPD and PNA Labs:(10/11) BH, BUN:29H, WBC:15H. H/H:18.4/57H Meds: D50% PRN, Humulin PRN, Mucinex, NS iV, Solumedrol, Zofran, Zosyn Current Diet:CCHO PO intake: (10/10) B:100%, L:80% D:100% (10/11) B:100% (10/12) B:100% Weights: (10/08) 198#, 89.8kg (10/12) 90kg Skin: healing excoration to buttocks Edema: +lower extremity Last BM: 10/[address] Jones progress note 10/11, pt is mildly confused, +fatigue and malaise. Plan is to continue antibiotics, inhaled bronchodilaters and wean off steroids. Recommend outpatient sleep study. During visit, pt was seen laying in bed. Pt reports to having a good appetite with no c/o GI issues at this time. Per candy maker helper, pt will possibly discharge today. Estimated Nutritional Needs based on actual bw:89kg Energy: 2000-2300kcal/day (20-23kcal/day for COPD) Protein: 90-99g/day (1-1.1 for preservation of LBM) Fluid: 200-2300ml/day (1ml/kcal) or per doctor Nutrition Diagnosis 1. Increased nutrient needs related to increased metabolic demands as evidenced by pt reports of requiring to utilize accessory breathing muscles during episodes of SOB w/out RT treatment. Intervention 1. Recommend continue CCHO diet. Monitor/Evaluate Previous goal: PO intake at least 75% of estimated needs (met) Goal: PO intake at least 75% of estimated needs Monitor: PO intake, Labs, GI function F/U in 7 days as low risk: 10/19
[2018-10-12 13:46] VITALS: BP 143/82
[2018-10-12 18:06] VITALS: BP 150/78
--- NOTE | 2018-10-12 18:48 | NUR ---
NO SIGNIFICANT CHANGE NOTED.WILL ENDORSE TO NEXT SHIFT.
--- NOTE | 2018-10-12 19:39 | NUR ---
SHIFT REASSESSMENT DONE.PATIENT ALERT ORIENTED X 2.O2 AT 2 LITERS.GEN WEAKNESS.NS AT 60 CC/ HOUR.TELE 40 SR.GEN WEAKNESS.NS AT 60 CC/ HOUR.SCD.CALL LIGHT IN REACH.CONGESTION,SUCTION SELF.CALL LIGHT IN REACH.
--- NOTE | 2018-10-12 20:54 | NUR ---
ALL MEDS GIVEN SCHEDULED.
[2018-10-12 21:07] VITALS: BP 134/77
--- NOTE | 2018-10-13 01:00 | NUR ---
PATIENT ATB SCHEDULE,PATIENT ABLE TO SUCTION SELF.CONGESTION,MAKING A LOT OF NOISE WHEN HE COUGH,HE IN ON MUCINEX.
[2018-10-13 05:44] VITALS: BP 151/92
--- NOTE | 2018-10-13 06:51 | NUR ---
PATIENT I AND O MEASURED.PATIENT CONTINOUS TO HAVE CONGESTION,MUCINEX MED ORDERED.WILL ENDORSE TO NEXT SHIFT.
--- NOTE | 2018-10-13 07:30 | NUR ---
RECEIVED PT RESTING IN BED. NO ACUTE DISTRESS. AWAKE AND ALERT. RESP EVEN AND UNLABORED ON 2L NC. OCCASIONAL COUGH. CONGESTED. RT PROTOCOL. HOB ELEVATED. FALL AND ASPIRATION PRECAUTIONS IN PLACE. IV TO L HAND, NO REDNESS OR SWELLING NOTED. BED IN LOW POSITION, CALL LIGHT WITHIN REACH. WILL CONTINUE TO MONITOR.
[2018-10-13 07:32] LABS: CARBON DIOXIDE 34.2 mmol/L (21-32); CHLORIDE SERUM 99 mmol/L (98-107); CREATININE SERUM 1.2 mg/dL (0.7-1.3); GFR1 > 60 mL/min; GLUCOSE SERUM 93 mg/dL (74-106); POTASSIUM SERUM 3.9 mmol/L (3.5-5.1); SODIUM SERUM 134 mmol/L (136-145)
[2018-10-13 07:36] LABS: BASOPHIL % 0.1 % (0-2); PLATELET COUNT 266 x10^3mcL (130-400); RED CELL DISTRIBUTION WIDTH 14.4 % (11.5-14.5)
--- NOTE | 2018-10-13 07:55 | NUR ---
PHYSICAL THERAPY DAILY NOTES CO-SIGN All documentation done by the Non Destructive Evaluation Technician for 10/13/18 has been reviewed. I agree with the documentation. Reviewed/Co-Signed by: Kamila Flanagan Documentation Done by:AMY RED PTA
[2018-10-13 08:38] VITALS: BP 127/79
--- NOTE | 2018-10-13 12:17 | NUR ---
BED LINEN CHANGED REQUESTED BY PATIENT. PHYSICAL THERAPY AT BEDSIDE CURRENTLY WORKING WITH PATIENT. PATIETN IN NO ACUTE DISTRESS. WILL CONTINUE TO MONITOR.
[2018-10-13 12:26] VITALS: BP 109/79
[2018-10-13 16:55] VITALS: BP 116/86
--- NOTE | 2018-10-13 18:48 | NUR ---
PT RESTING IN BED. NO ACUTE DISTRESS. AWAKE, ALERT. RESP EVEN AND UNLABORED ON 2L NC. RT PROTOCOL. IV TO L HAND, NO REDNESS OR SWELLING. HOB ELEVATED. FALL PRECAUTIONS IN PLACE. BED IN LOW POSITION, CALL LIGHT WITHIN REACH. WILL ENDORSE TO ONCOMING SHIFT.
--- NOTE | 2018-10-13 19:43 | NUR ---
PT SEEN, RESTING IN BED, ALERT AND ORIENTED, DENIES HEADACHE OR DIZZINESS, GARBLED SPEECH WITH HX OF CVA AND LEFT SIDE WEAKNESS, BREATHING EVEN AND UNLABORED O2 2L VIA NC WITH NO RESP DISTRESS NOTED WHILE RESTING IN BED, LUNG SOUNDS DIMINISHED AND CONGESTED, RT PROTOCOL, ON TELE#40 NSR, IVF INFUSING WELL, PULSES PALPABLE, EDEMA NOTED TO BLE, GENERALIZED WEAKNESS, UNSTEADY GAIT, ABD ROUND AND SOFT WITH ACTIVE BS, NO BM AT THIS TIME, VOIDING FREELY, HEALING EXCORIATION TO BUTTOCKS, BED ALARM ON, SIDE RAILS UP, CLUTTER FREE ENVIRONMENT MAINTAINED, NO DISTRESS NOTED, WILL KEEP TO MONITOR.
[2018-10-13 21:17] VITALS: BP 118/83
[2018-10-14 05:54] VITALS: BP 123/84
--- NOTE | 2018-10-14 06:48 | NUR ---
PT ASLEEP BUT EASILY AROUSABLE, SLEPT ON AND OFF WHOLE NIGHT, MORNING BLOOD SUGAR-132 MG/DL WITH NO RISS, IVF INFUSING WELL, BREATHING EVEN AND UNLABORED ON O2 2L VIA NC WITH NO RESP DISTRESS NOTED, WILL KEEP TO MONITOR.
--- NOTE | 2018-10-14 07:17 | NUR ---
BEDSIDE HANDOFF REPORT DONE WITH LACEY-SAUL, ALL QUESTIONS ANSWERED AND CONCERNS ADDRESSED.
--- NOTE | 2018-10-14 07:50 | NUR ---
RC'D PT RESTING IN BED WITH NO APPARENT SIGNS OF DSITRESS. A/A/O/X3, SPEECH GARBLED. DENIES SNIDER/DIZZINESS. ON TELE, DENIES CHEST PAIN/PRESSURE. PALP PULSES, EDEMA NOTED TO BLE. RESPIRATIONS EQUAL AND UNLABORED. CONGESTION NOTED. ON 2L O2 VIA NC, DENIES SOB. ABDOMEN ROUND AND NONTENDER. ACTIVE BS. DENIES N/V. VOIDS FREELY, DENIES BURNING. GENERALIZED WEAKNESS. LEFT SIDED WEAKNESS. DENIES PAIN AT THIS TIME. IV PATENT AND INTACT. BED IN LOW POSITION. CALL LIGHT IN REACH. WILL CONTINUE TO MONITOR
[2018-10-14 08:13] VITALS: BP 118/70
--- NOTE | 2018-10-14 09:05 | NUR ---
AM MEDICATIONS GIVEN. PT TOLERATED WELL. RESPIRATIONS EQUAL AND LABORED. CONGESTION NOTED. ON 2L O2 VIA NC, DENIES SOB. PT DENIES PAIN AT THIS TIME. BED IN LOW POSITION. CALL LIGHT IN REACH. WILL CONTINUE TO MONITOR
--- NOTE | 2018-10-14 11:27 | NUR ---
PT RESTING IN BED WITH NO APPARENT SIGNS OF DISTRESS. RESPIRATIONS EQUAL, ON 2L O2 VIA NC, DENIES SOB. PT DENIES PAIN AT THIS TIME. BED IN LOW POSITION. CALL LIGHT IN REACH. WILL CONTINUE TO MONITOR
[2018-10-14 11:31] VITALS: BP 122/88
[2018-10-14 16:25] VITALS: BP 104/66
--- NOTE | 2018-10-14 17:19 | NUR ---
O2 EQUIPMENT ARRIVED IN PT ROOM, VERIFIED THAT EQUIPMENT HAS ARRIVED AT PT HOUSE. PER FAMILY, EQUIPMENT IS AT THE HOUSE BUT THEY WILL BE UNABLE TO GET HIM UNTIL TOMORROW BECAUSE THEY ARENT HOME.
--- NOTE | 2018-10-14 17:34 | NUR ---
PT RESTING IN BED WITH NO APPARENT SIGNS OF DISTRESS. ON TELE, DENIES CHES TPAIN/PRESSURE. GARBLED SPEECH. RESPIRATIONS EQUAL AND LABORED. CONGESTION NOTED WITH COUGH. PT ON 2L O2 VIA NC, DENIES SOB AT THIS TIME. GENERALIZED WEAKNESS. NO ACUTE SKIN CHANGES NOTED AT THIS TIME. PT DENIES PAIN AT THIS TIME.L IV PATENT AND INTACT. BED IN LOW POSITION. CALL LIGHT IN REACH. WILL ENDORSE TO ONLINE MARKETING COORDINATOR RN
--- NOTE | 2018-10-14 17:38 | NUR ---
SPOKE TO PT'S DAUGHTER ON PHONE, DAUGHTER WILL ALL SOURCE COLLECTION MANAGER PT TOMORROW
--- NOTE | 2018-10-14 17:42 | NUR ---
PULLMAN CAR REPAIRER NOTIFIED AND MADE AWARE THAT FAMILY WILL PICK PT UP TOMORROW
--- NOTE | 2018-10-14 19:30 | NUR ---
PT RESTING IN BED. RR EVEN AND UNLABORED. AWAKE AND ALERT. SPEECH IS GARBLED, BUT PT IS ABLE TO EXPRESS NEEDS. TELE #40 SR. PULSES PRESENT TRACE EDMEA TO BLE. PETERS SOB ON 2L NC. RT PROTOCOL. BOWEL SOUNDS ACTIVE X4. GENERALIZED L SIDED WEAKNESS. DISCOLOARTION TO BUTTOCKS HEALING EXCORIATION. DENIES PAIN AT THIS TIME. IV TO LH PATENT . BED IN LOWEST POSITION, CALL LIGHT WITHIN REACH, WILL CONTINUE TO MONITOR.
[2018-10-14 21:40] VITALS: BP 100/70
--- NOTE | 2018-10-15 01:42 | NUR ---
PT RESTING IN BED. RR EVEN AND UNLABORED. NO ACUTE DISTRESS NOTED. EQUAL CHEST RISE AND FALL. PT CONTINUES TO SOUND CONGESTED, BUT IS ABLE TO CLEAR SECRETIONS WITHOUT DIFFICULTY. PT DENIES PAIN. IVF INFUSING WELL NO S/S OF INFILTRATION, BED IN LOWEST POSITION, CALL LIGHT WITHIN REACH, WILL CONTINUE TO MONITOR.
[2018-10-15 05:24] VITALS: BP 123/80
[2018-10-15 06:29] LABS: BASOPHIL % 0.1 % (0-2); PLATELET COUNT 252 x10^3mcL (130-400)
[2018-10-15 06:32] LABS: CALCIUM 8.2 mg/dL (8.5-10.1); CARBON DIOXIDE 34.6 mmol/L (21-32); CHLORIDE SERUM 101 mmol/L (98-107); CREATININE SERUM 1.2 mg/dL (0.7-1.3); GFR1 > 60 mL/min; GLUCOSE SERUM 84 mg/dL (74-106); POTASSIUM SERUM 4.3 mmol/L (3.5-5.1); SODIUM SERUM 139 mmol/L (136-145)
--- NOTE | 2018-10-15 08:00 | NUR ---
RC'D PT RESTING IN BED WITH NO APPARENT SIGNS OF DISTRESS. A/A/O/X4, SPEECH GARBLED. DENIES SNIDER/DIZZINESS. ON TELE, DENIES CHEST PAIN/PRESSURE. PALP PULSES, EDEMA NOTED TO BLE. RESPIRATIONS EQUAL AND LABORED. CONGESTION NOTED. ON 2L O2 VIA NC, DENIES SOB. ABDOMEN ROUND AND OBESE. ACTIVE BS. DENIES N/V. VOIDS FREELY. GENERALUZED WEAKNESS. EXCORIATION TO BUTTOCKS. DENIES PAIN AT THIS TIME. IV PATENT AND INTACT. BED IN LOW POSITION.CALL LIGHT IN REACH. WILL CONTINUE TO MONITOR
[2018-10-15 08:03] VITALS: BP 123/76
--- NOTE | 2018-10-15 08:40 | NUR ---
AM MEDICATIONS GIVEN. PT TOLERATED WELL. RESPIRATIONS EQUAL AND LABORED. PT CURRENTLY ON 2L O2 VIA NC, DENIES SOB. BED IN LOW POSITION. CALL LIGHT IN REACH. WILL CONTINUE TO MONITOR
--- NOTE | 2018-10-15 11:06 | NUR ---
PT RESTING IN BED WITH NO APPARENT SIGNS OF DISTRESS. RESPIRATIONS EQUAL AND LABORED. PT ON 2L O2 VIA NC, DENIES SOB. BED IN LOW POSITION. CALL LIGHT IN REACH. WILL CONTINUE TO MONITOR
[2018-10-15 12:04] VITALS: BP 123/76
[2018-10-15 12:10] VITALS: BP 110/80; BP 1110/80
--- NOTE | 2018-10-15 12:21 | NUR ---
NOTIFIED HULL SORTER MUTUC REGARDING PTS DISCHARGE MEDICATIONS, COPY OF PRESCRIPTIONS MADE AND PLACED IN PT FILE PER HULL SORTER
--- NOTE | 2018-10-15 12:46 | NUR ---
NAPHTHOL SOAPING MACHINE OPERATOR CATHLEEN NOTIFIED AND MADE AWARE THAT DISCHARGE ORDERS NOT FINALIZED, PER NAPHTHOL SOAPING MACHINE OPERATOR OKAY TO FINALIZE AT THIS TIME.
--- NOTE | 2018-10-15 15:32 | NUR ---
PT AND FAMILY PROVIDED WITH DC HOME INJSTRUCTIONS. GIVEN MEDICATION EDUCATION. INFORMED TO TAKE MEDICATIONS ORDERED BY MD. PT INFORMED THAT IF THERE WERE ANY WORSENING S/S TO RETURN TO ED OR REPORT TO PCP. PT AND FAMILY VERBALIZED UNDERSTANDING OF INSTRUCTIONS. TELE AND IV DC'D, CATHETER INTACT. NO REDNESS/INFLAMMATION/DISCOMFORT NOTED. PT TAKEN DOWN TO LOBBY WITH ALL PERSONAL BELONGINGS IN HAND FREE OF ANY APPARENT SIGNS OF DISTRESS
--- NOTE | 2018-10-16 11:33 | NUR ---
PHYSICAL THERAPY DAILY NOTES CO-SIGN All documentation done by the Retail Planner for 10/16/18 has been reviewed. I agree with the documentation. Reviewed/Co-Signed by: Kamila Flanagan Documentation Done by:AMY RED PTA
== END 2018-10-15 15:34 | disposition home health service (06) | DRG 177 ==
LOC: ED 22:32 → DU 10-04 00:47
PROVIDERS: Emergency Medicine; Family Medicine; Internal Medicine; ADMIT General Practice
DX: J69.0 Pneumonitis due to inhalation of food and vomit (principal); J96.01 Acute respiratory failure with hypoxia; J96.02 Acute respiratory failure with hypercapnia; J44.1 Chronic obstructive pulmonary disease with (acute) exacerbation; E44.0 Moderate protein-calorie malnutrition; I69.354 Hemiplegia and hemiparesis following cerebral infarction affecting left non-dominant side; E11.9 Type 2 diabetes mellitus without complications; J02.9 Acute pharyngitis, unspecified; I10 Essential (primary) hypertension; I25.10 Atherosclerotic heart disease of native coronary artery without angina pectoris; F17.210 Nicotine dependence, cigarettes, uncomplicated; Z68.31 Body mass index [BMI] 31.0-31.9, adult
CPT/HCPCS: 36600; 82962; 83880; 87804; 90658; 97110-GP; 97116-GP; 97530-GP; 99406; J0132; J0456; J0696; J1956; J2405; J2543; J2920; J2930; J7030; J7050; J7613; J7620; Q0092; Q9967

== ENCOUNTER 2020-10-08 18:36 | Emergency (ER) | payer OTHER ==
[~2020-10-08] VITALS: Ht 175.3 cm; Wt 77.1 kg
[2020-10-08 18:44] VITALS: Ht 175.3 cm; Wt 77.1 kg
[2020-10-08 19:27] VITALS: BP 148/96
== END 2020-10-08 20:40 | disposition home or self-care (01) ==
LOC: ED 18:36
DX: S01.01XA Laceration without foreign body of scalp, initial encounter (principal); I10 Essential (primary) hypertension; E11.9 Type 2 diabetes mellitus without complications; J44.9 Chronic obstructive pulmonary disease, unspecified; Z98.890 Other specified postprocedural states; W18.09XA Striking against other object with subsequent fall, initial encounter; Y93.89 Activity, other specified; Y92.89 Other specified places as the place of occurrence of the external cause; Y99.8 Other external cause status